=== PATIENT | female | born 1985 | race Hispanic/Latino ===

== ENCOUNTER 2025-06-06 18:37 | Emergency (ER) | payer BC ==
[~2025-06-06] VITALS: Ht 167.6 cm; Wt 68.0 kg
--- NOTE | 2025-06-06 19:02 | ERN ---
ED Note History of Present Illness Stated Complaint: WITNESSED SEIZURE Chief Complaint: Seizure Time Seen by MD: 18:53 Time Seen by Midlevel: 18:58 Dictation: 39 Year old female coming in status post seizure episode. Patient states he has had a Humulin U with the removed from her brain and since then she has had seizures. Last time she saw her neurosurgeon was in April with a has a CAT scan and everything was normal and was refractory neurologist however patient has not been LOC neurologist as yet. Patient states she has the stairs seizures not tonic-clonic. Patient states he was confused and felt days after the seizure. At this time patient is a awake alert and oriented x4 GCS 15 no neurological deficits. Allergies: Coded Allergies: No Known Drug Allergies (Unverified Allergy, Unknown, 06/06/25) Past Medical History Past Medical History: Seizure Additional Past Medical Hx: MENINGIOMA/BRAIN TUMOR Surgical History: Other Surgical History Other: CRANIOTOMY Review of System Dictation Constitutional: Negative for fever,chills, and weight loss Eyes: Negative for injury, pain,redness, and discharge ENT: Negative for injury,pain or swelling Cardiovascular: Negative for chest pain, palpitations, and edema Respiratory: Negative for shortness of breath, cough, and wheezing, Abdomen/GI: Negative for abdominal pain, nausea, vomiting, diarrhea, and c onstipation Back: Negative for injury and pain : Negative for injury, bleeding and discharge MS/Extremity: Negative for injury and deformity Skin: Negative for rash, and discoloration Neuro: Negative for headache, weakness, numbness, tingling, and seizure Psych: Negative for suicide ideation, homicidal ideation, and hallucinations Review of Systems: was completed Initial Vital Sign VS Vital Signs Date Time Temp Pulse Resp B/P (MAP) Pulse Ox O2 Delivery O2 Flow Rate FiO2 06/06/25 18:45 98.8 83 13 134/84 100 Room Air 0 06/06/25 19:34 21 Physical Exam Dictation General: awake, alert, NAD Head/Face: Normocephalic, atraumatic Eyes: PERRL, EOMI, vision at baseline ENT: oral cavity clear, TMs clear, no signs of infection Neck: Trachea midline, supple, no nuchal rigidity Cardiovascular: RRR, normal S1/S2, No MRGs, no JVD Respiratory: CTAB, no respiratory distress, No rales or wheezes Abdomen: Soft, non-tender, non-distended, normal bowel sounds, no guarding or rebound. Skin: Warm, dry, normal turgor, no rash MS/Extremity: Pulses equal, no cyanosis, neurovascular intact, FROM Neuro: COAx4, GCS 15, strength 5/5, CN 2-12 intact, normal cerebellar exam, normal gait, Psych: Normal behavior, mood, and affect normal Results (Laboratory/Radiology) Laboratory/Radiology Laboratory Tests Test 06/06/25 19:04 06/06/25 19:27 White Blood Count 12.7 K/uL (4.8-10.8) H Red Blood Count 4.78 MIL/uL (4.00-5.50) Hemoglobin 12.3 g/dL (12.0-16.0) Hematocrit 37.5 % (36-48) Mean Corpuscular Volume 78.5 fL (79-99) L Mean Corpuscular Hemoglobin 25.7 pg (27.0-33.0) L Mean Corpuscular Hemoglobin Concent 32.8 g/dL (32.0-36.0) Red Cell Distribution Width 14.9 % (11.0-15.5) Platelet Count 394 K/uL (130-400) Mean Platelet Volume 9.1 fL (7.5-10.5) Immature Granulocyte % (Auto) 0.3 % (0-1) Neutrophils (%) (Auto) 74.6 % (40.0-77.0) Lymphocytes (%) (Auto) 15.3 % (21.0-51.0) L Monocytes (%) (Auto) 7.2 % (3.0-13.0) Eosinophils (%) (Auto) 1.9 % (0.0-8.0) Basophils (%) (Auto) 0.7 % (0.0-5.0) Neutrophils # (Auto) 9.5 K/uL (1.8-7.7) H Lymphocytes # (Auto) 2.0 K/uL (1.0-4.8) Monocytes # (Auto) 0.9 K/uL (0.1-1.0) Eosinophils # (Auto) 0.24 K/uL (0.00-0.70) Basophils # (Auto) 0.09 K/uL (0.00-0.20) Absolute Immature Granulocyte (auto 0.04 K/uL (0-1) Nucleated Red Blood Cells 0.0 % (0.0-0.19) Sodium Level 135 mmol/L (136-145) L Potassium Level 4.0 mmol/L (3.5-5.1) Chloride Level 100 mmol/L (101-111) L Carbon Dioxide Level 26 mmol/L (21-32) Blood Urea Nitrogen 12 mg/dL (7-18) Creatinine 0.9 mg/dL (0.5-1.0) Glomerular Filtration Rate Calc 82 mL/min (>90) Random Glucose 86 mg/dL (70-105) Total Calcium 7.6 mg/dL (8.5-10.1) L Troponin I High Sensitivity < 4 ng/L (4-50) L Urine Color COLORLESS (YELLOW) Urine Appearance CLOUDY (CLEAR) H Urine pH 6.5 (5.0-8.0) Urine Specific [place] 1.008 (1.001-1.031) Urine Protein NEGATIVE mg/dL (NEGATIVE) Urine Glucose (UA) NEGATIVE mg/dL (NEGATIVE) Urine Ketones NEGATIVE mg/dL (NEGATIVE) Urine Occult Blood LARGE (NEGATIVE) H Urine Nitrate NEGATIVE (NEGATIVE) Urine Bilirubin NEGATIVE mg/dL (NEGATIVE) Urine Urobilinogen 0.2 mg/dL (0.2-1.0) Urine Leukocyte Esterase 500 Maria Antonia/uL (NEGATIVE) H Urine RBC 11-25 /HPF (0-1) H Urine WBC 6-10 /HPF (0-1) H Urine Squamous Epithelial Cells MANY /HPF (0-2) Urine Bacteria FEW /HPF (None Seen) Urine HCG, Qualitative NEGATIVE (NEGATIVE) Urine Opiates Screen NEGATIVE (NEGATIVE) Urine Barbiturates Screen NEGATIVE (NEGATIVE) Urine Phencyclidine Screen NEGATIVE (NEGATIVE) Urine Amphetamines Screen NEGATIVE (NEGATIVE) Urine Benzodiazepines Screen NEGATIVE (NEGATIVE) Urine Cocaine Screen NEGATIVE (NEGATIVE) Urine Marijuana (THC) Screen NEGATIVE (NEGATIVE) Labs Reviewed?: Yes CT Scan Comment: PATIENT: SELVIN GAYLE MR#: [id number] : 1985 SEX: F AGE: 39 LOCATION: [facility] ORDER 58 STATUS: REG ER REPORT#: [id number] SERVICE 57 REASON: seizure ORDERING PHYSICIAN: SELVIN WILKERSON CNP PROCEDURE: HEAD WO - CT HEAD/BRAIN W/O CONTRAST EXAM: CT Head Without IV contrast. CLINICAL HISTORY: seizure TECHNIQUE: Axial computed tomography images of the head/brain without intravenous contrast. COMPARISON: None provided. FINDINGS: BRAIN: No evidence of acute hemorrhage. No mass lesion. No CT evidence for acute territorial infarct. No midline shift or extra-axial collections. VENTRICLES: No hydrocephalus. ORBITS: The orbits are unremarkable. SINUSES AND MASTOIDS: The paranasal sinuses and mastoid air cells are clear. BONES: No fracture. Left parietal craniotomy SOFT TISSUES: Unremarkable. IMPRESSION: No acute intracranial abnormality. /[place] DICTATED BY: MARILIA GIBSON MD DATE: 06/06/252145 ELECTRONICALLY SIGNED BY: MARILIA GIBSON MD DATE: 06/06/252145 ED Course ED Course Orders Procedure Category Date Status Time Cbc With Differential LAB 06/06/25 Complete 18:47 Troponin I High LAB 06/06/25 Complete Sensitivity 18:47 Urinalysis Profile LAB 06/06/25 Complete 18:47 Basic Metabolic Panel LAB 06/06/25 Complete 18:47 Drug Screen Urine LAB 06/06/25 Complete 18:47 ,Urine Test LAB 06/06/25 Complete 18:47 Ct Head/Brain W/O CT 06/06/25 Resulted Contrast 18:58 Culture Urine NICKO 06/06/25 Logged 19:43 Ketorolac PHA 06/06/25 Complete Tromethamine 15mg/Ml 20:00 Current Medications Medications (Trade) Dose Ordered Sig/Jesus Route PRN Reason Start Time Stop Time Status Last Admin Dose Admin Ketorolac Tromethamine (toRADol) 15 mg ONCE ONCE IV 06/06/25 20:00 06/06/25 20:04 DC 06/06/25 20:09 Vital Signs Date Time Temp Pulse Resp B/P (MAP) Pulse Ox O2 Delivery O2 Flow Rate FiO2 06/06/25 19:34 78 18 128/71 100 Room Air* 0 21 06/06/25 18:45 98.8 83 13 134/84 100 Room Air 0 Patient care was transitioned to tx pending completion of evaluation and studies. Regarding her UA patient has started her menses today. No dysuria. Think this represents per menses. CT of the head was otherwise unremarkable. Patient had a meningioma surgery in October of last year and started having these spells. Patient reports that she gets 1-2 per month and they are usually triggered by stress test situations such as when people start screaming at her. This happened at work. Patient reports she has actually had multiple EEGs including a 72 hour and has seen Neurology. They never put her on any sort of medication for seizures although they do have her on migraine medicine. She is in the process of finding another neurologist per patient as well but does appear that this has been worked up she sees them in [place]. Given this history we will hold off on any starting of antiepileptics as there certainly components of suggest that this maybe nonepileptic in origin. Follow up with her Neurology. Patient discharged. Medical Decision Making MDM see above DX & DISP Disposition: Discharge Departure Impression: Primary Impression: Spells of decreased attentiveness Condition: Stable Additional Instructions: Follow up with your neurologist Referrals: SELF,REFERRAL (PCP) SELVIN WILKERSON CNP Jun 06, 2025 19:02 KRISTIAN SCHWAB MD Jun 06, 2025 21:00
[2025-06-06 19:18] LABS: IMMATURE GRANULOCYTE ABSOLUTE 0.04 K/uL (0-1); NUCLEATED RED BLOOD CELLS 0.0 % (0.0-0.19); PLATELET COUNT (AUTO) 394 K/uL (130-400); RED BLOOD CELL COUNT(AUTO) 4.78 MIL/uL (4.00-5.50); RED CELL DISTRIBUTION WIDTH 14.9 % (11.0-15.5); WHITE BLOOD COUNT (AUTO) 12.7 K/uL (4.8-10.8)
[2025-06-06 19:22] LABS: CREATININE 0.9 mg/dL (0.5-1.0); GLOMERULAR FILTR. RATE CALC 82.0 mL/min (>90); GLUCOSE,RANDOM 86.0 mg/dL (70-105); SODIUM SERUM 135.0 mmol/L (136-145); UREA NITROGEN, BLOOD 12.0 mg/dL (7-18)
[2025-06-06 19:38] LABS: APPEARANCE,URINE CLOUDY (CLEAR); GLUCOSE, URINE (UA) NEGATIVE (NEGATIVE); LEUKOCYTE ESTERASE ,URINE 500 Leu/uL (NEGATIVE); NITRATE,URINE NEGATIVE (NEGATIVE); OCCULT BLOOD,URINE LARGE (NEGATIVE)
[2025-06-06 19:41] LABS: HCG,QUALITATIVE URINE NEGATIVE (NEGATIVE)
[2025-06-06 19:43] LABS: ADD UA MICROSCOPIC YES
[2025-06-06 19:44] LABS: SQUAMOUS EPITHELIAL CELL,UR MANY /HPF (0-2)
[2025-06-06 19:46] LABS: AMPHET/METH SCREEN,URINE NEGATIVE (NEGATIVE); BARBITURATE SCREEN, URINE NEGATIVE (NEGATIVE); CANNABINOID SCREEN,URINE NEGATIVE (NEGATIVE); COCAINE SCREEN,URINE NEGATIVE (NEGATIVE)
--- NOTE | 2025-06-06 20:46 | HMCIMG ---
EXAM: CT Head Without IV contrast. CLINICAL HISTORY: seizure TECHNIQUE: Axial computed tomography images of the head/brain without intravenous contrast. COMPARISON: None provided. FINDINGS: BRAIN: No evidence of acute hemorrhage. No mass lesion. No CT evidence for acute territorial infarct. No midline shift or extra-axial collections. VENTRICLES: No hydrocephalus. ORBITS: The orbits are unremarkable. SINUSES AND MASTOIDS: The paranasal sinuses and mastoid air cells are clear. BONES: No fracture. Left parietal craniotomy SOFT TISSUES: Unremarkable. IMPRESSION: No acute intracranial abnormality. /[place]
[2025-06-06 21:09] VITALS: BP 119/72; PULSE 73; RESP 18; TEMP 98.5; O2SAT 99
== END 2025-06-06 21:10 | disposition home or self-care (01) ==
LOC: EDH 18:37
DX: R41.840 Attention and concentration deficit (principal); R56.9 Unspecified convulsions; Z98.890 Other specified postprocedural states
CPT/HCPCS: 99284; 96374; 70450; 84484; 80048; 80305; 85025; 87086; 81025; 36415; 81001; J1885